=== PATIENT | male | born 1995 | race Caucasian/White ===

== ENCOUNTER 2017-07-29 20:24 | Emergency (ER) | payer MEDICAID, OTHER ==
[~2017-07-29] VITALS: Ht 167.6 cm; Wt 65.0 kg
[2017-07-29] MEDS ORDERED: IBUP-1984 PO (23:17)
[2017-07-29 23:31] VITALS: BP 125/65
== END 2017-07-29 23:32 | disposition home or self-care (01) ==
LOC: ER 20:25
DX: S62.314A Displaced fracture of base of fourth metacarpal bone, right hand, initial encounter for closed fracture (principal); X58.XXXA Exposure to other specified factors, initial encounter; Y93.89 Activity, other specified; Y92.89 Other specified places as the place of occurrence of the external cause; Y99.8 Other external cause status
CPT/HCPCS: 29125; 73130; 99284

== ENCOUNTER 2018-04-04 14:23 | Emergency (ER) | payer MEDICAID, OTHER ==
[~2018-04-04] VITALS: Ht 170.2 cm; Wt 61.4 kg
[2018-04-04 14:25] VITALS: BP 126/72
[2018-04-04] MEDS ORDERED: LIDO20SO16 PO (15:14)
[2018-04-04] MEDS ORDERED: METH4TAB3 PO (15:14)
== END 2018-04-04 15:21 | disposition home or self-care (01) ==
LOC: ER 14:24
DX: B34.9 Viral infection, unspecified (principal); J02.9 Acute pharyngitis, unspecified; J45.909 Unspecified asthma, uncomplicated; Z79.899 Other long term (current) drug therapy
CPT/HCPCS: 87081; 87880; 99284

== ENCOUNTER 2018-05-02 14:17 | Emergency (ER) | payer MEDICAID ==
[~2018-05-02] VITALS: Ht 170.2 cm; Wt 60.0 kg
[~2018-05-02 14:17] MED LIST: LIDO20SO16 PO; METH4TAB3 PO
[2018-05-02] MEDS ORDERED: AZIT250T83 PO (17:12)
[2018-05-02 17:18] VITALS: BP 122/69
== END 2018-05-02 17:21 | disposition home or self-care (01) ==
LOC: ER 14:18
DX: R05 Cough (principal); R12 Heartburn; R07.81 Pleurodynia; J45.909 Unspecified asthma, uncomplicated; Z79.2 Long term (current) use of antibiotics; Z79.899 Other long term (current) drug therapy
CPT/HCPCS: 71046; 99283